=== PATIENT | female | born 1980 | race Caucasian/White ===

== ENCOUNTER → 2024-05-13 | Outpatient (CLI) | payer OTHER ==
[2005-06-27 09:27] VITALS: TEMP 97.1
[~2024-05-13] MED LIST: AZO STANDARD97.5 MG PO; MACROBID 1100 MG/CAP PO; PRENATAL1 TA1 PO; PRENATAL1 TA2 PO; TYLENOL PM EXTR1 TA1 PO
== END ==
LOC: MC.RAD 07:45
DX: Z12.31 Encounter for screening mammogram for malignant neoplasm of breast (principal); N64.89 Other specified disorders of breast

== ENCOUNTER → 2024-05-20 | Outpatient (CLI) | payer OTHER ==
[2005-06-27 09:27] VITALS: TEMP 97.1
== END ==
LOC: MC.RAD 09:47
DX: R92.8 Other abnormal and inconclusive findings on diagnostic imaging of breast (principal)